=== PATIENT | female | born 1990 | race Caucasian/White ===

== ENCOUNTER 2021-06-17 18:20 | Outpatient (CLI) | payer OTHER | END 2021-06-17 23:59 | disposition home or self-care (01) | LOC: LAB.N 18:20 | PROVIDERS: ATTEND Nurse Practitioner | DX: R53.81 Other malaise (principal); R53.83 Other fatigue; Z20.822 Contact with and (suspected) exposure to COVID-19 ==

== ENCOUNTER 2021-06-18 08:37 | Outpatient (CLI) | payer OTHER ==
[2021-06-18 12:52] LABS: HCG,QUALITATIVE BLOOD NEGATIVE
== END 2021-06-18 08:38 | disposition home or self-care (01) ==
LOC: LAB.N 08:37
PROVIDERS: ATTEND Nurse Practitioner
DX: R11.0 Nausea (principal)
CPT/HCPCS: 36415; 84703

== ENCOUNTER 2021-08-19 15:20 | Emergency (ER) | payer OTHER ==
--- NOTE | 2021-08-19 16:01 | ED Physician Documentation ---
History of Present Illness - Stated complaint Stated Complaint: CHILLS,HEADACHE,DIZZY - Chief complaint Chief Complaint: General - History obtained from History obtained from: Patient - History of Present Illness Timing: Today Pain level max: 0 Pain level now: 0 - Additonal information Additional information: Patient is a 30-year-old female who presents to the emergency department stating that she is about 11 weeks , 1 para 0. She states that she was working outside today. 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 She began to feel chills. [place] lightheaded and nauseated as well. She went inside, sat down and ate. Is currently feeling better but is still feeling intermittently hot and cold. Has some nausea but this has improved. No further vomiting. No urinary symptoms. No abdominal pain. No vaginal bleeding. Nothing makes it better or worse. No cough. No congestion. Review of Systems Ten Systems: 10 systems reviewed and negative Constitutional: reports: Chills. denies: Fever Ears: denies: Ear pain Nose: denies: Rhinorrhea / runny nose, Congestion Throat: denies: Sore throat Cardiac: denies: Chest pain / pressure, Palpitations Respiratory: denies: Dyspnea, Cough, Wheezing GI: reports: Nausea, Vomiting. denies: Abdominal Pain, Diarrhea : denies: Dysuria, Now EGA Skin: denies: Rash Musculoskeletal: denies: Neck pain, Back pain Neurologic: denies: Headache PD PAST MEDICAL HISTORY - Past Medical History Past Medical History: No - Past Surgical History Past Surgical History: No - Allergies Allergies/Adverse Reactions: Allergies Allergy/AdvReac Type Severity Reaction Status Date / Time No Known Drug Allergies Allergy Verified 08/19/21 15:24 - Living Situation Living Arrangement: reports: At home - Social History Does the pt smoke?: No Does the pt drink ETOH?: No Does the pt have substance abuse?: No PD ED PE NORMAL - Vitals Vital signs reviewed: Yes - General General: Alert and oriented X 3, No acute distress, Well developed/nourished - HEENT HEENT: PERRL, Moist mucous membranes - Neck Neck: Supple, no meningeal sign - Cardiac Cardiac: RRR, Strong equal pulses - Respiratory Respiratory: No respiratory distress, Clear bilaterally - Abdomen Abdomen: Soft, Non tender, Non distended - Back Back: No CVA TTP, No spinal TTP - Derm Derm: Warm and dry - Extremities Extremities: No edema, No calf tenderness / cord - Neuro Neuro: Alert and oriented X 3 - Psych Psych: Normal mood, Normal affect Results - Vitals Vitals: Vital Signs - 24 hr 08/19/21 08/19/21 15:25 17:45 Temperature 36.5 C 37.2 C Heart Rate 90 88 Respiratory 16 18 Rate Blood Pressure 130/72 105/62 O2 Saturation 100 100 Oxygen O2 Source Room air - Labs Labs: Laboratory Tests 08/19/21 08/19/21 08/19/21 15:58 15:58 15:58 WBC 8.1 RBC 4.28 Hgb 12.9 Hct 37.8 MCV 88.3 MCH 30.1 MCHC 34.1 RDW 11.9 L Plt Count 298 MPV 9.8 Neut # (Auto) 5.7 Lymph # (Auto) 1.8 Mccreary # (Auto) 0.5 Eos # (Auto) 0.1 Baso # (Auto) 0.1 Absolute Nucleated RBC 0.00 Nucleated RBC % 0.0 Sodium 136 Potassium 3.0 L Chloride 100 L Carbon Dioxide 24 Anion Gap 12.0 BUN 6 Creatinine 0.4 Estimated GFR (MDRD) 187 Glucose 158 H Calcium 9.6 Total Bilirubin 0.5 AST 14 ALT 14 Alkaline Phosphatase 39 L Total Protein 7.7 Albumin 4.2 Globulin 3.5 Albumin/Globulin Ratio 1.2 Lipase 30 Urine Color YELLOW Urine Clarity CLEAR Urine pH 6.0 Ur Specific [place] 1.020 Urine Protein NEGATIVE Urine Glucose (UA) 500 H Urine Ketones TRACE Urine Occult Blood NEGATIVE Urine Nitrite NEGATIVE Urine Bilirubin NEGATIVE Urine Urobilinogen 0.2 (NORMAL) Ur Leukocyte Esterase NEGATIVE Ur Microscopic Review NOT INDICATED Urine Culture Comments NOT INDICATED PD MEDICAL DECISION MAKING - ED course Complexity details: reviewed results, re-evaluated patient, considered differential, d/w patient ED course: Bedside ultrasound reveals an intrauterine , approximately 11 weeks EGA. heart rate approximately 154 bpm. Lots of movement. Images were shown to the patient. No significant lab findings other than Mild glucosuria. Patient is asymptomatic in the emergency department. We will have her follow-up with her OB for further care. Patient counseled regarding signs and symptoms for which I believe and urgent re-evaluation would be necessary. Patient with good understanding of and agreement to plan and is comfortable going home at this time This document was made in part using voice recognition software. While efforts are made to proofread this document, sound alike and grammatical errors may occur. Departure - Departure Disposition: 01 Home, Self Care Clinical Impression: Glucosuria, Hypokalemia Qualifiers: Weeks of gestation: 11 weeks Qualified Code(s): Z3A.11 - 11 weeks gestation of Condition: Good Instructions: ED Care Follow-Up: ANDI KHOURY [Physician No Access] - Within 1 week Comments: Please follow-up with your doctor for further care. You do have a small amount of glucose in the urine, approximately 500. Your blood sugar on your blood draw was 158. I recommend that you follow-up with your OB for further investigation of this. Please return if you worsen. Discharge Date/Time: 08/19/21 17:46
[2021-08-19 16:03] LABS: BASOPHILS # (AUTO) 0.1 10^3/uL (0.0-0.1); BASOPHILS % (AUTO) 0.6 %; EOSINOPHILS # (AUTO) 0.1 10^3/uL (0.0-0.7); EOSINOPHILS % (AUTO) 1.2 %; HCT - HEMATOCRIT 37.8 % (37.0-47.0); HGB - HEMOGLOBIN 12.9 g/dL (12.0-16.0); LYMPHOCYTES # (AUTO) 1.8 10^3/uL (1.5-3.5); LYMPHOCYTES % (AUTO) 21.9 %; MEAN CORPUSCULAR HEMOGLOBIN 30.1 pg (27.0-31.0); MEAN CORPUSCULAR HGB CONC 34.1 g/dL (32.0-36.0); MEAN CORPUSCULAR VOLUME 88.3 fL (81.0-99.0); MEAN PLATELET VOLUME 9.8 fL (7.9-10.8); MONOCYTES # (AUTO) 0.5 10^3/uL (0.0-1.0); MONOCYTES % (AUTO) 5.9 %; NEUTROPHILS # (AUTO) 5.7 10^3/uL (1.5-6.6); PLT - PLATELET COUNT 298 10^3/uL (130-450); RED BLOOD COUNT 4.28 10^6/uL (4.20-5.40); RED CELL DISTRIBUTION WIDTH 11.9 % (12.0-15.0); WHITE BLOOD COUNT 8.1 x10^3/uL (4.8-10.8)
[2021-08-19 16:14] LABS: BILIRUBIN,URINE NEGATIVE (NEGATIVE); GLUCOSE, URINE (UA) 500 mg/dL (NEGATIVE); KETONES,URINE (UA) TRACE mg/dL (NEGATIVE); LEUKOCYTE ESTERASE, URINE NEGATIVE (NEGATIVE); NITRITE,URINE NEGATIVE (NEGATIVE); OCCULT BLOOD,URINE NEGATIVE (NEGATIVE); PROTEIN,URINE NEGATIVE (NEGATIVE); UROBILINOGEN,URINE 0.2 (NORMAL) E.U./dL (NORMAL)
[2021-08-19 16:17] LABS: ALBUMIN 4.2 g/dL (3.2-5.5); ALBUMIN/GLOBULIN RATIO 1.2 (1.0-2.2); BILIRUBIN,TOTAL 0.5 mg/dL (0.2-1.0); CALCIUM 9.6 mg/dL (8.5-10.3); CLARITY,URINE CLEAR (CLEAR); CREATININE 0.4 mg/dL (0.4-1.0); TOTAL PROTEIN 7.7 g/dL (6.7-8.2)
[2021-08-19] MEDS ORDERED: POTASSIUM CHLORIDE 20 MEQ TABLET PO STA (17:26)
[2021-08-19 17:46] VITALS: BP 105/62
== END 2021-08-19 17:46 | disposition home or self-care (01) ==
LOC: ED 15:20
DX: O99.281 Endocrine, nutritional and metabolic diseases complicating pregnancy, first trimester (principal); E87.6 Hypokalemia; O99.810 Abnormal glucose complicating pregnancy; Z3A.11 11 weeks gestation of pregnancy; Z20.822 Contact with and (suspected) exposure to COVID-19
CPT/HCPCS: 36415; 80053; 81003; 83690; 85025; 87635; 99282; 99283; A9270; 81001; 87086

== ENCOUNTER 2021-09-09 12:40 | Emergency (ER) | payer OTHER ==
--- OUTSIDE RECORDS SUMMARY | 2021-09-09 12:52 | EXTERNAL MEDICAL SUMMARY RPT | Continuity of Care Document ---
:1990 Author Organization [facility] Address [address] [place] [address] Phone Care Team Providers Name Role Phone MCKINLEY Pam Johnson Jasmyne SENIOR MECHANICAL ENGINEER Unavailable Unavailab drew Registrar, Larisa Weaver Patient Unavailable Unavailleeann bingham MA, Nora Canales Unavailable Unavailable DAISY, Neel Arriaza Unavailable Unavailable Allergies No information. Encounters No information. Medications date description facility [id number] ondansetron hcl All [id number] ondansetron hcl All [id number] ondansetron hcl All [id number] ondansetron hcl All Problems date description facility [id number] Nausea alone All [id number] Nausea All 19617028 hCG, Serum, Qualitative () Al l [id number] COVID19 Testing All Procedures date description facility [id number] hCG, Serum, Qualitative () Al l 79053944 hCG, Serum, Qualitative () Al l 06100298 hCG, Serum, Qualitative () Al l Results test status date ordered by attending specimen mary e human_chorionic_gonado unknown [id number] unknown unknown unknown tropin_urine_qualitativ e_urine_pregnancy_test_ Choriogonadotropin_pre unknown [id number] unknown unknown unknown gnancy_test_Presence_in _Urine Urine_HCG_Exp_Date_CLI unknown [id number] unknown unknown unknown A_Waived_ Urine_HCG_Lot_Number_C unknown [id number] unknown unknown unknown LIA_Waived_ _2019NCoV_COVID-19_Lab unknown [id number] unknown unknown unknown _Test_Result_Text_ human_chorionic_gonado unknown [id number] unknown unknown unknown tropin_urine_qualitativ e_urine_pregnancy_test_ Choriogonadotropin_pre unknown [id number] unknown unknown unknown gnancy_test_Presence_in _Urine Urine_HCG_Exp_Date_CLI unknown [id number] unknown unknown unknown A_Waived_ Urine_HCG_Lot_Number_C unknown [id number] unknown unknown unknown LIA_Waived_ COVID-19_REFERENCE_TES unknown [id number] unknown unknown unknown T T unknown [id number] unknown unknown unknown _2019NCoV_COVID-19_Lab unknown [id number] unknown unknown unknown _Test_Result_Text_ human_chorionic_gonado unknown [id number] unknown unknown unknown tropin_urine_qualitativ e_urine_pregnancy_test_ Choriogonadotropin_pre unknown [id number] unknown unknown unknown gnancy_test_Presence_in _Urine Urine_HCG_Exp_Date_CLI unknown [id number] unknown unknown unknown A_Waived_ Urine_HCG_Lot_Number_C unknown [id number] unknown unknown unknown LIA_Waived_ COVID-19_REFERENCE_TES unknown [id number] unknown unknown unknown T T unknown [id number] unknown unknown unknown human_chorionic_gonado unknown [id number] unknown unknown unknown tropin_urine_qualitativ e_urine_pregnancy_test_ Choriogonadotropin_pre unknown [id number] unknown unknown unknown gnancy_test_Presence_in _Urine Urine_HCG_Exp_Date_CLI unknown [id number] unknown unknown unknown A_Waived_ Urine_HCG_Lot_Number_C unknown [id number] unknown unknown unknown LIA_Waived_ facility observation status value reference units lab abnor mal line range code notes All human_chorio unknown Negative unknown _2578 unkno wn unknown nic_gonadotro pin_urine_qua litative_urin e_pregnancy_t est_ All Choriogonado unknown Negative unknown _2105 unkno wn unknown tropin_pregna -3 ncy_test_Pres ence_in_Urine All Urine_HCG_Ex unknown 08/30/22 unknown _1149 unknow n unknown p_Date_CLIA_W 41 aived_ All Urine_HCG_Lo unknown [id number] unknown _1149 unkno wn unknown t_Number_CLIA 40 _Waived_ All _2019NCoV_CO unknown NEGATIVE unknown _6659 unkno wn unknown VID-19_Lab_Te 97 st_Result_Tex t_ All human_chorio unknown Negative unknown _2578 unkno wn unknown nic_gonadotro pin_urine_qua litative_urin e_pregnancy_t est_ All Choriogonado unknown Negative unknown _2106 unkno wn unknown tropin_pregna -3 ncy_test_Pres ence_in_Urine All Urine_HCG_Ex unknown 08/30/22 unknown _1149 unknow n unknown p_Date_CLIA_W 41 aived_ All Urine_HCG_Lo unknown [id number] unknown _1149 unkno wn unknown t_Number_CLIA 40 _Waived_ All COVID-19_REF unknown NEGATIVE unknown COVID unkno wn unknown ERENCE_TEST 19.REF All T unknown NEGATIVE unknown COVID unknown un known -19 All _2019NCoV_CO unknown NEGATIVE unknown _6659 unkno wn unknown VID-19_Lab_Te 97 st_Result_Tex t_ All human_chorio unknown Negative unknown _2578 unkno wn unknown nic_gonadotro pin_urine_qua litative_urin e_pregnancy_t est_ All Choriogonado unknown Negative unknown _2106 unkno wn unknown tropin_pregna -3 ncy_test_Pres ence_in_Urine All Urine_HCG_Ex unknown 08/30/22 unknown _1149 unknow n unknown p_Date_CLIA_W 41 aived_ All Urine_HCG_Lo unknown [id number] unknown _1149 unkno wn unknown t_Number_CLIA 40 _Waived_ All COVID-19_REF unknown NEGATIVE unknown COVID unkno wn unknown ERENCE_TEST 19.REF All T unknown NEGATIVE unknown COVID unknown un known -19 All human_chorio unknown Negative unknown _2578 unkno wn unknown nic_gonadotro pin_urine_qua litative_urin e_pregnancy_t est_ All Choriogonado unknown Negative unknown _2106 unkno wn unknown tropin_pregna -3 ncy_test_Pres ence_in_Urine All Urine_HCG_Ex unknown 08/30/22 unknown _1149 unknow n unknown p_Date_CLIA_W 41 aived_ All Urine_HCG_Lo unknown [id number] unknown _1149 unkno wn unknown t_Number_CLIA 40 _Waived_ Vital Signs date measurement value source [id number] weight_standard 125 lb 20210617 weight_metric 56.7 kg 20210617 temperature_standard 97.8 F 20210617 temperature_metric 36.56 C 20210617 respiration_rate 16 /min 20210617 height_standard 59 in 20210617 height_metric 149.86 cm 20210617 heart_rate 67 /min 20210617 BP_systolic 116 mm[Hg] 32377738 BP_diastolic 72 mm[Hg] 20210617 BMI 25.34 kg/m2 20210617 weight_standard 125 lb [id number] weight_metric 56.7 kg 20210617 temperature_standard 97.8 F 20210617 temperature_metric 36.56 C 20210617 respiration_rate 16 /min 20210617 height_standard 59 in 20210617 height_metric 149.86 cm 20210617 heart_rate 67 /min 20210617 BP_systolic 116 mm[Hg] 45931413 BP_diastolic 72 mm[Hg] 20210617 BMI 25.34 kg/m2 20210617 weight_standard 125 lb 20210617 weight_metric 56.7 kg 20210617 temperature_standard 97.8 F 20210617 temperature_metric 36.56 C 20210617 respiration_rate 16 /min 20210617 height_standard 59 in 20210617 height_metric 149.86 cm 20210617 heart_rate 67 /min 20210617 BP_systolic 116 mm[Hg] 48218754 BP_diastolic 72 mm[Hg] 20210617 BMI 25.34 kg/m2 [id number] weight_standard 125 lb [id number] weight_metric 56.7 kg 20210617 temperature_standard 97.8 F 20210617 temperature_metric 36.56 C 20210617 respiration_rate 16 /min 20210617 height_standard 59 in 20210617 height_metric 149.86 cm 36398302 heart_rate 67 /min 20210617 BP_systolic 116 mm[Hg] 53794301 BP_diastolic 72 mm[Hg] 20210617 BMI 25.34 kg/m2
[2021-09-09 13:05] LABS: BASOPHILS # (AUTO) 0.1 10^3/uL (0.0-0.1); BASOPHILS % (AUTO) 0.6 %; EOSINOPHILS # (AUTO) 0.1 10^3/uL (0.0-0.7); EOSINOPHILS % (AUTO) 1.1 %; HCT - HEMATOCRIT 36.8 % (37.0-47.0); HGB - HEMOGLOBIN 12.6 g/dL (12.0-16.0); LYMPHOCYTES # (AUTO) 2.3 10^3/uL (1.5-3.5); LYMPHOCYTES % (AUTO) 28.5 %; MEAN CORPUSCULAR HEMOGLOBIN 30.1 pg (27.0-31.0); MEAN CORPUSCULAR HGB CONC 34.2 g/dL (32.0-36.0); MEAN PLATELET VOLUME 9.6 fL (7.9-10.8); MONOCYTES # (AUTO) 0.5 10^3/uL (0.0-1.0); MONOCYTES % (AUTO) 5.7 %; NEUTROPHILS # (AUTO) 5.2 10^3/uL (1.5-6.6); NEUTROPHILS % (AUTO) 63.9 %; PLT - PLATELET COUNT 258 10^3/uL (130-450); RED BLOOD COUNT 4.18 10^6/uL (4.20-5.40); RED CELL DISTRIBUTION WIDTH 12.3 % (12.0-15.0); WHITE BLOOD COUNT 8.2 x10^3/uL (4.8-10.8)
[2021-09-09 13:16] LABS: BILIRUBIN,URINE NEGATIVE (NEGATIVE); GLUCOSE, URINE (UA) NEGATIVE (NEGATIVE); KETONES,URINE (UA) NEGATIVE (NEGATIVE); LEUKOCYTE ESTERASE, URINE NEGATIVE (NEGATIVE); NITRITE,URINE NEGATIVE (NEGATIVE); OCCULT BLOOD,URINE NEGATIVE (NEGATIVE); PH,URINE 6.5 PH (5.0-7.5); PROTEIN,URINE NEGATIVE (NEGATIVE); UROBILINOGEN,URINE 0.2 (NORMAL) E.U./dL (NORMAL)
[2021-09-09 13:18] LABS: ALBUMIN 4.3 g/dL (3.2-5.5); ALBUMIN/GLOBULIN RATIO 1.2 (1.0-2.2); BILIRUBIN,TOTAL 0.3 mg/dL (0.2-1.0); CALCIUM 8.9 mg/dL (8.5-10.3); CREATININE 0.4 mg/dL (0.4-1.0); POTASSIUM 3.4 mmol/L (3.5-5.0); TOTAL PROTEIN 7.8 g/dL (6.7-8.2)
[2021-09-09 13:24] LABS: CLARITY,URINE CLEAR (CLEAR)
--- NOTE | 2021-09-09 14:02 | ED Physician Documentation ---
History of Present Illness - Stated complaint Stated Complaint: ABD PX,FEMALE - Chief complaint Chief Complaint: Abd Pain - Additonal information Additional information: 30-year-old female presents emergency department for evaluation of mid abdominal and lower pelvic cramping for 2 days as well as dysuria 5 days ago. G1, P0. LMP 05/25/2021. She thinks she is approximately 15 weeks . She was seen in mid August for lower abdominal pain and found to be approximately 11 weeks . She has had difficulty following up with OB but has established with Dr. English. She denies any fevers, nausea or vomiting. No loss of fluids. She reports frequently urinating perhaps as often as every 15 minutes but no recent dysuria Review of Systems Constitutional: denies: Fever, Chills Eyes: reports: Reviewed and negative Nose: reports: Reviewed and negative Throat: reports: Reviewed and negative Cardiac: reports: Reviewed and negative Respiratory: reports: Reviewed and negative GI: reports: Abdominal Pain. denies: Nausea, Vomiting : reports: Frequency. denies: Dysuria, Hesitancy, Unable to Void, Incontinent, Hematuria Skin: reports: Reviewed and negative Musculoskeletal: reports: Reviewed and negative Neurologic: reports: Reviewed and negative PD PAST MEDICAL HISTORY - Past Surgical History Past Surgical History: No - Allergies Allergies/Adverse Reactions: Allergies Allergy/AdvReac Type Severity Reaction Status Date / Time No Known Drug Allergies Allergy Verified 09/09/21 12:46 - Social History Does the pt smoke?: No Does the pt drink ETOH?: No Does the pt have substance abuse?: No PD ED PE NORMAL - General General: Alert and oriented X 3, No acute distress, Well developed/nourished - HEENT HEENT: Atraumatic, Moist mucous membranes, Pharynx benign - Neck Neck: Supple, no meningeal sign, Thyroid normal, No JVD - Cardiac Cardiac: RRR, No murmur - Respiratory Respiratory: No respiratory distress - Abdomen Abdomen: Normal bowel sounds, Soft, Non tender (Mid pelvic tenderness nonfocal. Limited bedside ultrasound reveals an IUP with active movement and a heart rate of approximately 160.), Non distended - Rectal Rectal: Deferred - Back Back: No CVA TTP, No spinal TTP - Derm Derm: Normal color, No rash - Extremities Extremities: No deformity - Neuro Neuro: Alert and oriented X 3, outdoor pursuits instructor 2-12 intact Eye Opening: Spontaneous Motor: Obeys Commands Verbal: Oriented GCS Score: 15 Results - Vitals Vitals: Vital Signs - 24 hr 09/09/21 09/09/21 12:43 14:02 Temperature 37.2 C Heart Rate 92 70 Respiratory 16 Rate Blood Pressure 116/83 H 100/63 O2 Saturation 100 100 Oxygen O2 Source Room air - Labs Labs: Laboratory Tests 09/09/21 09/09/21 09/09/21 12:50 12:57 12:57 WBC 8.2 RBC 4.18 L Hgb 12.6 Hct 36.8 L MCV 88.0 MCH 30.1 MCHC 34.2 RDW 12.3 Plt Count 258 MPV 9.6 Neut # (Auto) 5.2 Lymph # (Auto) 2.3 Lares # (Auto) 0.5 Eos # (Auto) 0.1 Baso # (Auto) 0.1 Absolute Nucleated RBC 0.00 Nucleated RBC % 0.0 Sodium 134 L Potassium 3.4 L Chloride 102 Carbon Dioxide 24 Anion Gap 8.0 BUN 5 L Creatinine 0.4 Estimated GFR (MDRD) 187 Glucose 79 Calcium 8.9 Total Bilirubin 0.3 AST 17 ALT 16 Alkaline Phosphatase 41 L Total Protein 7.8 Albumin 4.3 Globulin 3.5 Albumin/Globulin Ratio 1.2 Lipase 27 HCG, Quant Urine Color YELLOW Urine Clarity CLEAR Urine pH 6.5 Ur Specific [place] <=1.005 Urine Protein NEGATIVE Urine Glucose (UA) NEGATIVE Urine Ketones NEGATIVE Urine Occult Blood NEGATIVE Urine Nitrite NEGATIVE Urine Bilirubin NEGATIVE Urine Urobilinogen 0.2 (NORMAL) Ur Leukocyte Esterase NEGATIVE Ur Microscopic Review NOT INDICATED Urine Culture Comments NOT INDICATED 09/09/21 12:57 WBC RBC Hgb Hct MCV MCH MCHC RDW Plt Count MPV Neut # (Auto) Lymph # (Auto) Lares # (Auto) Eos # (Auto) Baso # (Auto) Absolute Nucleated RBC Nucleated RBC % Sodium Potassium Chloride Carbon Dioxide Anion Gap BUN Creatinine Estimated GFR (MDRD) Glucose Calcium Total Bilirubin AST ALT Alkaline Phosphatase Total Protein Albumin Globulin Albumin/Globulin Ratio Lipase HCG, Quant 25307.00 Urine Color Urine Clarity Urine pH Ur Specific [place] Urine Protein Urine Glucose (UA) Urine Ketones Urine Occult Blood Urine Nitrite Urine Bilirubin Urine Urobilinogen Ur Leukocyte Esterase Ur Microscopic Review Urine Culture Comments - Rads (name of study) OB US Radiology: Final report received (16-week 1 day live IUP heart rate 155. No concerning findings or complications.) PD MEDICAL DECISION MAKING - ED course Complexity details: reviewed results, re-evaluated patient, considered differential ED course: 3-year-old female who is G1, P0 presents the emergency department for evaluation of urinary frequency but no dysuria as well as 4 to 5 days of pelvic cramping and pain. No fevers or vomiting. She expresses frustration with follow-up with her OB and states that they lost her urine sample 4 days ago thus she comes to the ER now. Screening labs showed no leukocytosis and no findings of urinary tract infection. She has not had a formal OB ultrasound with her OB provider and one was completed today that showed a 16-week 1 day live IUP with heart rate of 155. No concerning findings or complications. I suspect that the cause of her urinary frequency is simply enlargement of the uterus and pelvis on her bladder. She likely has a component of round ligament pain. We discussed that follow-up with OB moving forward is going to be im portant. She can take Tylenol for any discomfort. Emergent return precautions were discussed for vaginal bleeding loss of fluids or fevers and discharge. Departure - Departure Disposition: 01 Home, Self Care Clinical Impression: Pelvic cramping in antepartum period Condition: Stable Record reviewed to determine appropriate education?: Yes Instructions: Preg 2nd Trimester Coping, Preg 2nd Trimester Comments: You are seen today in the emergency department for urinary frequency as well as pelvic cramping. Your screening labs, blood count electrolytes and urine are all essentially unremarkable. You do not have a urinary tract infection. The OB ultrasound today shows that you are 16 weeks 1 day with a heart rate of 155. Baby had good movement. You are likely to start experienc ing kicks and movement at around 17 to 18 weeks. It is important you continue close follow-up with OB for longer-term management of this . I suspect that what you are experiencing is round ligament pain due to the stretching of your pelvis and uterus to accommodate the . It is also likely putting pressure on your bladder causing you to have to urinate more frequently. If at any point you develop fevers, have loss of fluids or vaginal bleeding then please return immediately to the ER for second evaluation.
[2021-09-09] MEDS ORDERED: ACETAMINOPHEN 325 MG TABLET PO STA (14:03)
[2021-09-09 16:06] VITALS: BP 120/60
--- NOTE | 2021-09-09 16:18 | Ultrasound Report ---
PROCEDURE: OB 14+ Weeks INDICATIONS: RT PELVIC PAIN OUTSIDE/PRIOR DATING DATA: Last menstrual period (LMP): 05/25/2021. LMP-based estimated date of delivery (OLY): 03/01/2022. First dating scan (date and location): 09/09/2021. Estimated date of delivery (OLY) from first dating scan: 02/23/2022. The below data below was generated using the ultrasound derived OLY of 22 TECHNIQUE: Real-time scanning was performed of the fetus, with image documentation and biometric measurements. Endovaginal scanning: Not performed COMPARISON: None. FINDINGS: General: A single living intrauterine gestation is present. Presentation: Variable Placenta: Placental position is anterior, without previa. Amniotic fluid index: 12.3 cm, normal for gestational age. heart rate: 155 beats per minute. Maternal cervical canal: 4.4 cm long; normal length is 2.5 cm or more. biometrics: Biparietal diameter: 3.4 cm Head circumference: 12.3 cm Abdominal circumference: 10.5 cm Femur length: 1.9 cm Estimated gestational age from initial scan: not applicable. Composite gestational age from present scan: 16 weeks 1 day Estimated weight and percentile: 144 g, 88th percentile Measurement variability for biometric dating: +/- 10 days from 12-20 weeks gestation, +/- 2 weeks fro m 20-30 weeks gestation, +/- 3 weeks for 30 weeks gestation or later. IMPRESSION: Single live intrauterine gestation with estimated ultrasound age of 16 weeks 1 day. Reviewed by: Hebert Fry MD on 09/09/2021 4:17 PM PST Approved by: Hebert Fry MD on 09/09/2021 4:17 PM PST Station ID: [id number]
== END 2021-09-09 15:45 | disposition home or self-care (01) ==
LOC: ED 12:40
DX: O26.892 Other specified pregnancy related conditions, second trimester (principal); R10.2 Pelvic and perineal pain; R35.0 Frequency of micturition; Z3A.15 15 weeks gestation of pregnancy
CPT/HCPCS: 36415; 76805; 80053; 81003; 83690; 84702; 85025; 99282; 99284; A9270; 81001; 87086